=== PATIENT | female | born 1995 | race Caucasian/White ===

== ENCOUNTER → 2018-07-09 19:17 | Outpatient (CLI) | payer OTHER, SELFPAY ==
--- NOTE | 2018-07-09 19:21 | DI.RAD.S_ITS ---
PROCEDURE: XR FOOT LT MIN 3V INDICATIONS: Stepped on two nails 1st mid foot and 2nd toe TECHNIQUE: 3 views of the foot were acquired. COMPARISON: None. FINDINGS: Bones: No fractures or dislocations. No suspicious bony lesions. Incidental note is made of an accessory ossicle, an os peroneum. Soft tissues: No retained foreign bodies are seen. IMPRESSION: Unremarkable plain film study, without retained foreign bodies. If there is strong suspicion for developing osteomyelitis, please consider a dedicated MRI with contrast for further evaluation (assuming that there is no contraindication to MRI). Dictated by: Dagoberto Parker M.D. on 07/09/2018 at 19:41 Approved by: Dagoberto Parker M.D. on 07/09/2018 at 19:42
== END ==
PROVIDERS: PCP Family Medicine; Visit Provider Physician Assistant
DX: S91.332A Puncture wound without foreign body, left foot, initial encounter (principal)
CPT/HCPCS: 73630

== ENCOUNTER 2019-05-12 00:56 | Emergency (ER) | payer OTHER, SELFPAY ==
[2019-05-12 01:00] VITALS: BP 101/60; PULSE 69; RESP 16; TEMP 36.4; O2SAT 100; BMI 19.8
[2019-05-12] MEDS: KETOROLAC 60 MG/2 ML VIAL 30 MG IV (01:25)
[2019-05-12] MEDS: SODIUM CHLORIDE 0.9% 1,000 ML 1000 ML IV (01:25)
[2019-05-12] MEDS: PANTOPRAZOLE 40 MG VIAL IV (01:26)
[2019-05-12] MEDS: ONDANSETRON 4 MG/2 ML INJ IV (01:26)
--- NOTE | 2019-05-12 01:27 | ED_ITS ---
HPI - Nausea/Vomiting/Diarrhea General Chief complaint: Nausea/Vomiting/Diarrhea Stated complaint: stomach pain diarrhea vomiting dehydrated Time Seen by Provider: 05/12/19 01:20 Source: patient Mode of arrival: ambulatory Limitations: no limitations History of Present Illness HPI Narrative: Patient is a 23-year-old female who presents been nausea vomiting abdominal pain and diarrhea. She says it has been going on for 2 days. She has been having diarrhea she says at least 3 times a day. She says it is nonbloody. She has severe abdominal pain around her belly button. She just has thrown up 2 times this evening. He has not taken anything for the pain. She did drink some water this morning but overall has decreased appetite and decreased oral intake. MD complaint: nausea, vomiting, diarrhea and abdominal pain Onset (ago): day(s) (2) Description of Vomiting: watery Description of Diarrhea: watery Location of pain: diffuse and periumbilical Severity: severe Quality: cramping Pain Consistency: constant Relieving factors: none Related Data Home Medications Medication Instructions Recorded Confirmed etonogestrel [Nexplanon] 68 mg INTRADERMAL #0 12/22/16 07/09/18 escitalopram oxalate [Lexapro] 10 mg PO QDAY #0 11/03/17 07/09/18 Previous Rx's Medication Instructions Recorded albuterol sulfate [Proventil HFA] 2 puff INH Q4HP PRN #8.5 gm 02/13/17 eszopiclone [Lunesta] 3 mg PO HS #30 tab 02/28/17 ondansetron 4 mg PO Q6-8H PRN #10 tab 05/12/19 Allergies Allergy/AdvReac Type Severity Reaction Status Date / Time hydrocodone [HYDROCODONE] AdvReac Severe GI UPSET Verified 07/09/18 19:02 AND CONSTIPATION Review of Systems Review of Systems GENERAL: Denies chills, fatigue, malaise, fever, sweats, travel HEENT: Denies sinus pain, ear pain, sore throat, difficulty swallowing, neck pain RESPIRATORY: Denies dyspnea, cough, wheezing, hemoptysis, sputum. CARDIOVASCULAR: Denies chest pain, palpitations, orthopnea, edema GASTROINTESTINAL: See HPI : Denies dysuria, frequency, incontinence, hematuria, urinary retention, flank pain. MUSCULOSKELETAL: Denies weakness, joint pain, or bony pain SKIN: No rash, no erythema, no pruritus NEUROLOGIC: Denies weakness, dizziness, headache, numbness, change in speech, confusion PSYCHIATRIC: No concerning psychosocial issues. 12 point review of systems is negative except for those stated above and HPI [facility] Medical History Patient denies significant medical history (Acute) Surgical History History of third molar tooth extraction History of tonsillectomy Social History Smoking Status: Never smoker Social History Smoking Status: Never smoker Exam Initial Vital Signs Initial Vital Signs: Vital Signs Temperature 97.6 F 05/12/19 01:00 Pulse Rate 69 05/12/19 01:00 Respiratory Rate 16 05/12/19 01:00 Blood Pressure 101/60 05/12/19 01:00 Pulse Oximetry 100 05/12/19 01:00 GENERAL: Thin ill-appearing young female HEENT: Head atraumatic,EOMI, pupils reactive, face symmetric, slightly dry mucous CARDIOVASCULAR: Regular rate and rhythm without murmurs, rubs or gallops. RESPIRATORY: Breath sounds equal bilaterally, no wheezes rales or rhonchi. ABDOMEN: Soft, diffuse abdominal pain mostly around periumbilical area : No CVA tenderness EXTREMITIES: Normal range of motion, no clubbing or edema. Neurovascularly intact NEUROLOGICAL: Alert and oriented x4.Normal gait and speech. Cranial nerves II through XII grossly intact. SKIN: Warm, dry, no laceration, no petechiae, no rashes or lesions. Course Orders Ordered: ED Orders 05/12/19 01:20 Complete Blood Count AUTO DIFF Stat Comprehensive Metabolic Panel Stat Lipase Stat Discontinued Medications Sodium Chloride (Normal Saline 0.9%) 1,000 mls @ 1,000 mls/hr IV CONT LORI Last Infusion: 05/12/19 02:30 Dose: 0 mls/hr Admin: 05/12/19 01:25 Dose: 1,000 mls/hr Ketorolac Tromethamine (Toradol) 30 mg IV NOW ONE Stop: 05/12/19 01:22 Last Admin: 05/12/19 01:25 Dose: 30 mg Ondansetron HCl (Zofran) 4 mg IV NOW ONE Stop: 05/12/19 01:22 Last Admin: 05/12/19 01:26 Dose: 4 mg Ondansetron HCl (Zofran Odt Prepack) 1 bottle MISC SEEINSTR ONE Stop: 05/12/19 02:42 Last Admin: 05/12/19 03:04 Dose: 1 bottle Pantoprazole Sodium (Protonix) 40 mg IV NOW ONE Stop: 05/12/19 01:22 Last Admin: 05/12/19 01:26 Dose: 40 mg Vital Signs - 8 hr 05/12/19 01:00 05/12/19 03:07 05/12/19 03:20 Temperature 97.6 F 97.9 F Pulse Rate 69 73 83 Respiratory Rate 16 16 16 Blood Pressure 101/60 110/63 Blood Pressure [Right Arm] 100/45 L Pulse Oximetry 100 100 100 MDM - Nausea/Vomiting/Diarrhea Lab Data Attestation: I reviewed the patient's lab results. Result diagrams: 05/12/19 01:20 05/12/19 01:20 Lab Results 05/12/19 05/12/19 Range/Units 01:20 01:20 WBC 10.8 (4.5-11.0) X10^3/uL RBC 4.16 (4.0-5.2) X10^6/uL Hgb 12.6 (12.0-16.0) g/dL Hct 37.4 (36-46) % MCV 90.0 (80-100) fL MCH 30.4 (26-34) PG MCHC 33.8 (30-36) % RDW 12.7 (11.6-14.8) % Plt Count 207 (150-400) X10^3/uL Neut % (Auto) 65.8 (50-75) % Lymph % (Auto) 24.8 L (25-40) % [place] % (Auto) 7.2 (3-14) % Eos % (Auto) 1.8 L (2-4) % Baso % (Auto) 0.4 (0-2) % Neut # (Auto) 7100 H (2620-4831) /uL Lymph # (Auto) 2700 (1892-4206) /uL [place] # (Auto) 800 (0-900) /uL Eos # (Auto) 200 (0-450) /uL Baso # (Auto) 0 (0-100) /uL Sodium 138 (137-145) mmol/L Potassium 3.3 L (3.4-5.1) mmol/L Chloride 103 (98-107) mmol/L Carbon Dioxide 25 (22-32) mmol/L BUN 10 (7-17) mg/dL Creatinine 0.60 (0.52-1.04) mg/dL Estimated GFR > 60.0 (>60) mL/min BUN/Creatinine Ratio 16.7 (6-22) Glucose 130 H (70-100) mg/dL Calcium 9.4 (8.4-10.2) mg/dL Total Bilirubin 0.4 (0.2-1.3) mg/dL AST 23 (14-36) IU/L ALT 16 (9-52) IU/L Alkaline Phosphatase 65 (38-126) U/L Total Protein 7.8 (6.3-8.2) g/dL Albumin 4.6 (3.5-5.0) g/dL Globulin 3.2 (1.7-4.1) g/dL Albumin/Globulin Ratio 1.4 (1.0-2.8) Lipase 60 (23-300) U/L MDM Narrative Medical decision making narrative: Patient overall is feeling significantly better. Tolerating oral fluids. Her abdomen is reexamined and soft and nontender. This time I see no indication for any imaging. Discussed with her oral rehydration techniques and when to return to the ED. Discharge Plan Departure Patient Disposition: Home Clinical Impression: Gastroenteritis Discharge Date/Time: 05/12/19 03:18 Interventions: ED Discharge Assessment Last Done: 05/12/19 03:20 Instructions: DI for Viral Gastroenteritis -- Adult Activity Restrictions/Additional Instructions: 1) You have been diagnosed with a viral gastroenteritis 2) What to do: Drink frequent but small amounts of fluids. I recommend Gatorade or a Gatorade-like product, as it has small amounts of sugar and salts that improve fluid retention. 3) Take medications as directed Zofran 4 mg every 6-8 hours if needed for nausea vomiting--> SENT TO [facility] IN [place] 4) Follow up with your primary care provider in 2-3 days 5) Return to ER if you should have any new or worsening symptoms such as, unable to hold down fluids despite use of anti-nausea medications and the small volume oral rehydration strategy. Prescriptions: New ondansetron 4 mg tablet,disintegrating 4 mg PO Q6-8H PRN (Reason: nausea and vomiting) Qty: 10 RF: 0 No Action etonogestrel [Nexplanon] 68 MG implant 68 mg Intradermal Qty: 0 RF: 0 albuterol sulfate [Proventil HFA] 90 MCG/PUFF HFA aerosol inhaler 2 puff INH Q4HP PRNQty: 8.5 RF: 0 eszopiclone [Lunesta] 3 MG tablet 3 mg PO HS Qty: 30 RF: 3 escitalopram oxalate [Lexapro] 10 MG tablet 10 mg PO QDAY Qty: 0 RF: 0 Referrals: Kelly Gay DO [Primary Care Provider] -
[2019-05-12 01:46] LABS: Add Manual Diff / Slide Review NO; Basophils Absolute Auto 0 /uL (0-100); Basophils Percent Auto 0.4 % (0-2); Eosinophils Absolute Auto 200 /uL (0-450); Eosinophils Percent Auto 1.8 % (2-4); Hematocrit 37.4 % (36-46); Hemoglobin 12.6 g/dL (12.0-16.0); Lymphocytes Absolute Auto 2700 /uL (1100-4500); Lymphocytes Percent Auto 24.8 % (25-40); Mean Corpuscular HGB Conc 33.8 % (30-36); Mean Corpuscular Hemoglobin 30.4 PG (26-34); Monocytes Absolute Auto 800 /uL (0-900); Monocytes Percent Auto 7.2 % (3-14); Neutrophils Absolute Auto 7100 /uL (1500-7000); Neutrophils Percent Auto 65.8 % (50-75); Platelet Count 207 X10^3/uL (150-400); Red Blood Cell Count 4.16 X10^6/uL (4.0-5.2); Red Cell Distribution Width 12.7 % (11.6-14.8); White Blood Cell Count 10.8 X10^3/uL (4.5-11.0)
[2019-05-12 01:50] LABS: Alanine Aminotransferase 16 IU/L (9-52); Albumin 4.6 g/dL (3.5-5.0); Albumin Globulin Ratio 1.4 (1.0-2.8); Alkaline Phosphatase 65 U/L (38-126); Aspartate Aminotransferase 23 IU/L (14-36); BUN Creatinine Ratio 16.7 (6-22); Bilirubin Total 0.4 mg/dL (0.2-1.3); Blood Urea Nitrogen 10 mg/dL (7-17); Calcium 9.4 mg/dL (8.4-10.2); Carbon Dioxide 25 mmol/L (22-32); Chloride 103 mmol/L (98-107); Estimated Glomerular Filt Rate > 60.0 mL/min (>60); Globulin 3.2 g/dL (1.7-4.1); Glucose 130 mg/dL (70-100); HEMOLYSIS < 15 (0-50); Lipase 60 U/L (23-300); Potassium 3.3 mmol/L (3.4-5.1); Sodium 138 mmol/L (137-145); Total Protein 7.8 g/dL (6.3-8.2)
[2019-05-12] MEDS: ONDANSETRON 4 MG ODT PREPACK 1 BOTTLE MISC (03:04)
[2019-05-12 03:07] VITALS: BP 100/45; PULSE 73; RESP 16; O2SAT 100
[2019-05-12 03:20] VITALS: BP 110/63; PULSE 83; RESP 16; TEMP 36.6; O2SAT 100
== END 2019-05-12 03:18 | disposition home or self-care (01) ==
PROVIDERS: Emergency Provider Emergency Medicine; PCP Family Medicine
DX: K52.9 Noninfective gastroenteritis and colitis, unspecified (principal)
CPT/HCPCS: 36591; 80053; 83690; 85025; 96361; 96374; 96375; 99283; 99284; C9113; J1885; J2405

== ENCOUNTER → 2019-06-11 17:49 | Outpatient (CLI) | payer OTHER, SELFPAY ==
[2019-06-11 20:56] LABS: Urine N gonorrhoeae NOT DETECTED
[2019-06-11 21:00] LABS: Urine Chlamydia NOT DETECTED
== END ==
PROVIDERS: PCP Family Medicine; Visit Provider Physician Assistant
DX: N30.01 Acute cystitis with hematuria (principal); Z11.3 Encounter for screening for infections with a predominantly sexual mode of transmission
CPT/HCPCS: 87077; 87086; 87186; 87491; 87591